=== PATIENT | female | born 1965 | race Caucasian/White ===

== ENCOUNTER 2019-01-21 13:10 | Emergency (ER) | payer MEDICAID, OTHER ==
[~2019-01-21] VITALS: Ht 165.1 cm; Wt 91.6 kg
[2019-01-21 13:12] VITALS: BP 122/75
--- NOTE | 2019-01-21 13:22 | NUR ---
pt arrived to ed c/o abd pain x 6 months. rates pain 10/10 and describes it as sharp burning constant pain sensation. lower quads of abd/suprapubic region has tenderness and pain. abd is round and soft. active bs present in all quads. vss. pt states she has urgency and frequency when urinating. pt also states the pain gets worse when walking or standing or any movement. denies any burning when urinating or hematuria. nka. pmh: prolasped bladder, c/s, full hysterectomy, gallbladder removal.
--- NOTE | 2019-01-21 13:22 | NUR ---
PT PLACED IN BED 7.
[2019-01-21] MEDS ORDERED: ONDANSETRON 4 MG ODT PO ONE (13:50)
[2019-01-21] MEDS ORDERED: KETOROLAC 60 MG/2 ML VIAL IM ONE (13:50)
[2019-01-21 14:04] VITALS: BP 122/75
--- NOTE | 2019-01-21 14:04 | NUR ---
Patient discharged with v/s stable. Written and verbal after care instructions given and explained. Patient alert, oriented and verbalized understanding of instructions. Ambulatory with steady gait. All questions addressed prior to discharge. ID band removed. Patient advised to follow up with PMD. Rx of motrin, zofran, and norco given. Patient educated on indication of medication including possible reaction and side effects. Opportunity to ask questions provided and answered.
== END 2019-01-21 14:04 | disposition home or self-care (01) ==
LOC: MED 13:10
DX: R10.31 Right lower quadrant pain (principal); R11.0 Nausea; Z90.49 Acquired absence of other specified parts of digestive tract; Z90.710 Acquired absence of both cervix and uterus; Z98.890 Other specified postprocedural states
CPT/HCPCS: 81002; 81025; 96372; 99283; J1885; Q0162